=== PATIENT | female | born 2005 | race Caucasian/White ===

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

== ENCOUNTER 2023-01-21 21:40 | Emergency (ER) | payer MEDICAID, OTHER ==
[2023-01-21 21:53] LABS: BILIRUBIN,URINE NEGATIVE (NEGATIVE); CLARITY,URINE CLEAR; COLOR,URINE YELLOW; GLUCOSE, URINE (UA) NEGATIVE (NEGATIVE); KETONES,URINE NEGATIVE (NEGATIVE); LEUKOCYTE ESTERASE ,URINE NEGATIVE (NEGATIVE); NITRITE,URINE NEGATIVE (NEGATIVE); PH,URINE 6.5 (5-9); PROTEIN,URINE NEGATIVE (NEGATIVE)
[2023-01-21 21:59] LABS: AMORPHOUS SEDIMENT,UR FEW AMOR URATES /LPF; BACTERIA,URINE FEW /HPF
[2023-01-21 22:03] LABS: BASOPHILS % (AUTO) 1 % (0-10); EOSINOPHILS # (AUTO) 0.1 10^3/uL (0.0-0.3); EOSINOPHILS % (AUTO) 1 % (0-10); HEMATOCRIT 38 % (35-52); HEMOGLOBIN 12.3 g/dL (11.5-16.0); LYMPHOCYTES # (AUTO) 3.2 10^3/uL (1.0-4.0); LYMPHOCYTES % (AUTO) 42 % (12-44); MEAN CORPUSCULAR HEMOGLOBIN 28 pg (25-34); MEAN CORPUSCULAR HGB CONC 33 g/dL (32-36); MEAN CORPUSCULAR VOLUME 87 fL (80-99); MEAN PLATELET VOLUME 11.6 fL (9.0-12.2); MONOCYTES # (AUTO) 0.6 10^3/uL (0.0-1.0); MONOCYTES % (AUTO) 9 % (0-12); NEUTROPHILS # (AUTO) 3.6 10^3/uL (1.8-7.8); NEUTROPHILS % (AUTO) 48 % (42-75); PLATELET COUNT 204 10^3/uL (130-400); WHITE BLOOD COUNT 7.6 10^3/uL (4.3-11.0)
[2023-01-21 22:25] LABS: CARBON DIOXIDE 26 MMOL/L (21-32); CHLORIDE 106 MMOL/L (98-107); POTASSIUM 3.8 MMOL/L (3.6-5.0); SODIUM 139 MMOL/L (135-145)
[2023-01-21 22:26] LABS: ALANINE AMINOTRANSFERASE 12 U/L (0-55); ALBUMIN 4.2 GM/DL (3.2-4.5); ALKALINE PHOSPHATASE 81 U/L (40-136); BILIRUBIN,TOTAL 0.2 MG/DL (0.1-1.0); BUN/CREATININE RATIO 14; CALCIUM 9.4 MG/DL (8.5-10.1); GFR ESTIMATED 74; GLUCOSE 95 MG/DL (70-105); TOTAL PROTEIN 6.7 GM/DL (6.4-8.2)
--- NOTE | 2023-01-21 22:42 | ED General ---
General Chief Complaint: General Problems/Pain Stated Complaint: KIDNEY PAIN&LOWER BACK PAIN,N/V Nursing Triage Note: Pt complaining of generalized abdominal pain, n/v, breast pain, and pain with urination Source of Information: Patient, Old Records Exam Limitations: No Limitations History of Present Illness Date Seen by Provider: January 21, 2023 Time Seen by Provider: 21:43 Initial Comments This 17-year-old woman is brought to the emergency room by [facility] staff [facility] with primary complaint of nausea, vomiting, and abdominal discomfort. She reports being nauseated with occasional vomiting x3 weeks. Vomiting has not been witnessed by corrections staff. She reports her urine tonight was "black". She has urinary frequency and dysuria. She complains of lower abdominal pain and epigastric pain as well as pain in the lower back. She reports her breasts are tender. She has an Implanon control implant. She is about 4 months . She reports sometimes it is hard to breathe. Patient is the primary historian with logistics supply officer being a contributor. I also reviewed her prior ER visit here. About a month ago she had some similar complaints and reported a positive home urine test. No further work-up was done in the ER. Patient's demeanor is unusual and she has occasional outbursts of belligerent speech. At one point she shouted expletives at the sphygmomanometer as it was measuring her blood pressure. Patient provides an extensive list of behavioral health diagnoses. She reports recently being admitted to [facility]. Allergies and Home Medications Allergies Coded Allergies: Sulfa (Sulfonamide Antibiotics) (Verified Allergy, Unknown, 09/28/20) Uncoded Allergies: Flu shot (Adverse Reaction, Unknown, 01/13/21) Patient Home Medication List Home Medication List Reviewed: Yes Albuterol Sulfate (Ventolin Hfa) 1 Puff Puff, 2 PUFF INH Q4H Prescribed by: NASIMA VAUGHN MD on 07/07/22 1703 Albuterol Sulfate (Proventil Hfa) 6.7 Gm Hfa.aer.ad, 2 PUFF INH Q6H Prescribed by: SEVERO DOVER on 11/12/22 1503 Cephalexin (Cephalexin) 500 Mg Tablet, 500 MG PO BID Prescribed by: NASIMA VAUGHN MD on 07/07/22 1703 Cephalexin (Cephalexin) 500 Mg Tablet, 500 MG PO QID Prescribed by: HUMBERTO MICHAEL on 12/03/22 1150 Docosahexanoic Acid ( Dha) 200 Mg Capsule, 200 MG PO DAILY, (Reported) Entered as Reported by: MADISON MARIEE on 05/30/22 0023 Doxycycline Hyclate (Doxycycline Hyclate) 100 Mg Tablet, 100 MG PO BID Prescribed by: HUMBERTO MICHAEL on 12/03/22 115 Famotidine (Pepcid) 20 Mg Tablet, 20 MG PO BID Prescribed by: DONTAE SIDDIQUI on 01/21/23 224 Guaifenesin (Mucinex) 1,200 Mg Tab.er.12h, 1,200 MG PO BID Prescribed by: SEVERO DOVER on 11/12/22 1503 Nitrofurantoin Macrocrystal (Nitrofurantoin) 100 Mg Capsule, 100 MG PO BID Prescribed by: NASIMA VAUGHN MD on 11/28/22 1228 Nitrofurantoin Monohyd/M-Cryst (Macrobid 100 mg Capsule) 100 Mg Capsule, 1 TAB PO BID Prescribed by: SUYAPA ALVARADO on 12/01/22 2112 Ondansetron (Ondansetron Odt) 4 Mg Tab.rapdis, 4 MG SL Q6H PRN for NAUSEA/VOMITING Prescribed by: HUMBERTO MICHAEL on 12/03/22 1150 Ondansetron (Ondansetron Odt) 4 Mg Tab.rapdis, 4 MG SL Q4H PRN for NAUSEA/VOMITING Prescribed by: DONTAE SIDDIQUI on 01/21/23 224 Review of Systems Review of Systems Constitutional: no symptoms reported EENTM: no symptoms reported Respiratory: see HPI Cardiovascular: no symptoms reported Gastrointestinal: see HPI Genitourinary: see HPI : No LMP: Dec 05, 2022 Musculoskeletal: see HPI Skin: no symptoms reported Psychiatric/Neurological: See HPI Hematologic/Lymphatic: No Symptoms Reported Immunological/Allergic: no symptoms reported Past Niqrubu-Onfcqw-Pdjvvx Hx Patient Social History Tobacco Use?: Yes Tobacco type used: Cigarettes Smoking Status: Current Everyday Smoker Use of E-Cig and/or Vaping dev: Yes E-Cig or Vaping type used: Nicotine Substance use?: Yes (Marijuana, mushrooms, acid) Substance type: Hallucinogens, Marijuana Alcohol Use?: Yes Pt feels they are or have been: No Immunizations Up To Date PED Vaccines UTD: Yes First/Initial COVID19 Vaccinat: N/A Second COVID19 Vaccination Derek: N/A Third COVID19 Vaccination Date: N/A Seasonal Allergies Seasonal Allergies: No Past Medical History Surgery/Hospitalization HX: asthma Surgeries: Yes Orthopedic (ACL repair) Respiratory: Yes Asthma Cardiac: No Neurological: Yes ("Thalamus tumor") : No Last Menstrual Period: Dec 05, 2022 Reproductive Disorders: Yes ("Cyst on my uterus") Genitourinary: No Gastrointestinal: No Musculoskeletal: Yes (ACL injury left knee) Endocrine: No HEENT: No Cancer: No Psychosocial: Yes (Autism) ADD/ADHD, PTSD, Bipolar, Schizophrenia, Depression Integumentary: No Blood Disorders: No Family Medical History No Pertinent Family Hx SOCIAL HISTORY: -SMOKES 1 PPD -ALCOHOL --OCCASIONAL USE -DRUGS--DAILY MARIJUANA USE Physical Exam Vital Signs Vital Signs - First Documented 01/21/23 21:44 Pulse 82 Resp 18 B/P (MAP) 101/58 (72) Pulse Ox 100 O2 Delivery Room Air Capillary Refill : Less Than 3 Seconds Height, Weight, BMI Height: '" Weight: lbs. oz. kg; 21.00 BMI Method: General Appearance: No Apparent Distress, WD/WN HEENT: PERRL/EOMI, Normal ENT Inspection Neck: Normal Inspection Respiratory: Lungs Clear, Normal Breath Sounds, No Accessory Muscle Use, Other (Poor inspiratory effort) Cardiovascular: Regular Rate, Rhythm, No Edema, No Murmur Gastrointestinal: Normal Bowel Sounds, Soft; No Distended; Tenderness (Generalized) Back: Normal Inspection, CVA Tenderness (R) Extremity: Normal Inspection, No Pedal Edema Neurologic/Psychiatric: Alert, Oriented x3, No Motor/Sensory Deficits, Other (Behavior and appropriate at times with outbursts of belligerent expletives. Generally cooperative.) Progress/Results/Core Measures Suspected Sepsis SIRS Temperature: Pulse: 82 Respiratory Rate: 18 Laboratory Tests 01/21/23 22:00: White Blood Count 7.6 Blood Pressure 101 /58 Mean: 72 Laboratory Tests 01/21/23 22:00: Creatinine 1.10, Platelet Count 204, Total Bilirubin 0.2 Results/Orders Lab Results Laboratory Tests Test 01/21/23 21:47 01/21/23 22:00 Range/Units Urine Color YELLOW Urine Clarity CLEAR Urine pH 6.5 5-9 Urine Specific [place] 1.015 L 1.016-1.022 Urine Protein NEGATIVE NEGATIVE Urine Glucose (UA) NEGATIVE NEGATIVE Urine Ketones NEGATIVE NEGATIVE Urine Nitrite NEGATIVE NEGATIVE Urine Bilirubin NEGATIVE NEGATIVE Urine Urobilinogen 0.2 < = 1.0 MG/DL Urine Leukocyte Esterase NEGATIVE NEGATIVE Urine RBC (Auto) NEGATIVE NEGATIVE Urine RBC NONE /HPF Urine WBC 2-5 /HPF Urine Squamous Epithelial Cells 2-5 /HPF Urine Crystals PRESENT H /LPF Urine Amorphous Sediment FEW GOPI URATES H /LPF Urine Bacteria FEW H /HPF Urine Casts NONE /LPF Urine Mucus SMALL H /LPF Urine Culture Indicated NO White Blood Count 7.6 4.3-11.0 10^3/uL Red Blood Count 4.33 3.80-5.11 10^6/uL Hemoglobin 12.3 11.5-16.0 g/dL Hematocrit 38 35-52 % Mean Corpuscular Volume 87 80-99 fL Mean Corpuscular Hemoglobin 28 25-34 pg Mean Corpuscular Hemoglobin Concent 33 32-36 g/dL Red Cell Distribution Width 13.0 10.0-14.5 % Platelet Count 204 130-400 10^3/uL Mean Platelet Volume 11.6 9.0-12.2 fL Immature Granulocyte % (Auto) 0 % Neutrophils (%) (Auto) 48 42-75 % Lymphocytes (%) (Auto) 42 12-44 % Monocytes (%) (Auto) 9 0-12 % Eosinophils (%) (Auto) 1 0-10 % Basophils (%) (Auto) 1 0-10 % Neutrophils # (Auto) 3.6 1.8-7.8 10^3/uL Lymphocytes # (Auto) 3.2 1.0-4.0 10^3/uL Monocytes # (Auto) 0.6 0.0-1.0 10^3/uL Eosinophils # (Auto) 0.1 0.0-0.3 10^3/uL Basophils # (Auto) 0.0 0.0-0.1 10^3/uL Immature Granulocyte # (Auto) 0.0 0.0-0.1 10^3/uL Sodium Level 139 135-145 MMOL/L Potassium Level 3.8 3.6-5.0 MMOL/L Chloride Level 106 98-107 MMOL/L Carbon Dioxide Level 26 21-32 MMOL/L Anion Gap 7 5-14 MMOL/L Blood Urea Nitrogen 15 7-18 MG/DL Creatinine 1.10 0.60-1.30 MG/DL Estimat Glomerular Filtration Rate 74 BUN/Creatinine Ratio 14 Glucose Level 95 70-105 MG/DL Calcium Level 9.4 8.5-10.1 MG/DL Corrected Calcium 9.2 8.5-10.1 MG/DL Total Bilirubin 0.2 0.1-1.0 MG/DL Aspartate Amino Transf (AST/SGOT) 16 5-34 U/L Alanine Aminotransferase (ALT/SGPT) 12 0-55 U/L Alkaline Phosphatase 81 40-136 U/L C-Reactive Protein < 0.30 <0.50 MG/DL Total Protein 6.7 6.4-8.2 GM/DL Albumin 4.2 3.2-4.5 GM/DL Lipase 34 8-78 U/L Serum Test, Qualitative NEGATIVE NEGATIVE My Orders Orders - DONTAE SCHULZ MD Ua Culture If Indicated (01/21/23 21:43) Cbc With Automated Diff (01/21/23 21:58) Comprehensive Metabolic Panel (01/21/23 21:58) Hcg,Qualitative Serum (01/21/23 21:58) Crp Fs (01/21/23 21:58) Ed Iv/Invasive Line Start (01/21/23 21:58) Lipase (01/21/23 22:01) Ondansetron Injection (Zofran Injectio (01/21/23 22:45) Pantoprazole Tablet (Protonix Tablet) (01/21/23 22:45) Medications Given in ED Current Medications Medications Dose Ordered Sig/Raeann Route Start Time Stop Time Status Last Admin Dose Admin Ondansetron HCl 4 mg ONCE ONCE IVP 01/21/23 22:45 01/21/23 22:46 DC 01/21/23 22:46 4 MG Pantoprazole Sodium 40 mg ONCE ONCE PO 01/21/23 22:45 01/21/23 22:46 DC 01/21/23 22:47 40 MG Vital Signs/I&O 01/21/23 01/21/23 21:44 22:50 Pulse 82 82 Resp 18 18 B/P (MAP) 101/58 (72) 101/58 Pulse Ox 100 100 O2 Delivery Room Air Room Air Capillary Refill : Less Than 3 Seconds Blood Pressure Mean: 72 Progress Note : Progress Note Vital signs were unremarkable. Patient stated tenderness on abdominal exam and right CVA tenderness. Exam was otherwise unremarkable. She was noted any physical distress. No vomiting was appreciated in the ER. Labs were evaluated and interpreted by me. CBC, CMP, lipase, urinalysis, and serum test are all unremarkable. Patient was treated with Zofran and Protonix and ultimately discharged with corrections staff. Further evaluation may be pursued on a nonemergent basis with the corrections medical staff. If symptoms persist, an outpatient ultrasound could be obtained. Prescriptions for Pepcid and Zofran were provided. Departure Impression Primary Impression: Abdominal pain Qualified Codes: R10.84 - Generalized abdominal pain Additional Impressions: Dysuria Nausea & vomiting Qualified Codes: R11.2 - Nausea with vomiting, unspecified Disposition: 01 HOME, SELF-CARE Condition: Stable Departure-Patient Inst. Decision time for Depature: 22:47 Referrals: [facility] (PCP/Family) Primary Care Physician Patient Instructions: Abdominal Pain, Adult ED Add. Discharge Instructions: Use Pepcid twice daily for upset stomach. Use Zofran (ondansetron) as prescri bed for nausea and vomiting. Follow-up with the [facility] medical provider to determine if additional work-up is warranted. Return to the ER if symptoms are worsening despite following these instructions. All discharge instructions reviewed with patient and/or family. Voiced understanding. Scripts Famotidine (Pepcid) 20 Mg Tablet 20 MG PO BID, #30 TAB Prov: DONTAE SCHULZ MD 01/21/23 Ondansetron (Ondansetron Odt) 4 Mg Tab.rapdis 4 MG SL Q4H PRN for NAUSEA/VOMITING, #10 TAB Prov: DONTAE SCHULZ MD 01/21/23 Copy Copies To 1: [facility]/DONTAE SKELTON MD January 21, 2023 22:42
[2023-01-21] MEDS ORDERED: PANTOPRAZOLE 40 MG (PROTONIX) TAB PO ONE (22:45)
[2023-01-21] MEDS ORDERED: ONDANSETRON 4 MG/2 ML (SDV) Z0FRAN IVP ONE (22:45)
[2023-01-21] MEDS ORDERED: ONDA4TAB11 SL (22:49)
[2023-01-21] MEDS ORDERED: FAMO-119 PO (22:49)
[2023-01-21 22:50] VITALS: BP 101/58
== END 2023-01-21 22:52 | disposition home or self-care (01) ==
LOC: EDUNIT# 21:40 → ER FS 21:42
DX: R10.84 Generalized abdominal pain (principal); R30.0 Dysuria; R11.2 Nausea with vomiting, unspecified; R35.0 Frequency of micturition; F17.210 Nicotine dependence, cigarettes, uncomplicated; F17.290 Nicotine dependence, other tobacco product, uncomplicated; Z28.310 Unvaccinated for COVID-19
CPT/HCPCS: 36415; 80053; 81000; 83690; 84703; 85025; 86141

== ENCOUNTER 2023-08-13 20:45 | Emergency (ER) | payer MEDICAID, OTHER ==
[~2023-08-13] VITALS: Ht 162 cm; Wt 62.6 kg
[2023-08-13 20:45] VITALS: BP 98/66
[~2023-08-13 20:45] MED LIST changes: +FAMO-119 PO
[2023-08-13] MEDS ORDERED: PANTOPRAZOLE INJECTION 40 MG VIAL IV STA (20:56)
[2023-08-13] MEDS ORDERED: ONDANSETRON INJECTION 4 MG/2 ML (SDV) IVP STA (20:56)
[2023-08-13] MEDS ORDERED: KETOROLAC INJ 15 MG/ML VIAL IVP STA (20:56)
[2023-08-13] MEDS ORDERED: NS IV 1000 ML 1,000 ML IV STA ×2 (20:56→21:36)
--- NOTE | 2023-08-13 21:03 | ED General ---
General Chief Complaint: General Problems/Pain Stated Complaint: WITHDRAWAL SYMPTOMS Source of Information: Patient, Family (sister over patient's cell phone as an independent historian as patient called her to answer questions about why she was in the ED rather than answer herself) History of Present Illness Date Seen by Provider: Aug 13, 2023 Time Seen by Provider: 20:47 Initial Comments 18-year-old female presenting with complaints of not feeling well for the last several days. She is currently on probation and had tested positive for marijuana and fentanyl earlier this week. She had a negative urine drug test on the sixth but has continued to not feel well. She stated that she almost passed out this morning and she has been having nausea with vomiting. She has been drinking a lot of energy drinks but not much in the way of water or any hydrating drinks. She denies any pain or burning with urination. She has had episodes of sweating but denies any actual fever or chills. She was seen in the clinic earlier this week and reportedly had swabs done to test for strep and viral infections. These were reportedly negative. Since she continued to not feel well rather than go back to the clinic during the week she came here to the emergency department on Wednesday night at 9 PM. Severity: Moderate Associated Systoms: No Chest Pain, No Cough, No Diaphoresis, No Fever/Chills, No Headaches, No Loss of Appetite; Malaise, Nausea/Vomiting; No Rash, No Seizure; Shortness of Air; No Syncope; Weakness Allergies and Home Medications Allergies Coded Allergies: Sulfa (Sulfonamide Antibiotics) (Verified Allergy, Unknown, 09/28/20) olanzapine (Verified Allergy, Unknown, 01/22/23) Uncoded Allergies: Flu shot (Adverse Reaction, Unknown, 01/13/21) Patient Home Medication List Home Medication List Reviewed: Yes Albuterol Sulfate (Ventolin Hfa) 1 Puff Puff, 2 PUFF INH Q4H Prescribed by: NASIMA VAUGHN MD on 07/07/22 170 Albuterol Sulfate (Proventil Hfa) 6.7 Gm Hfa.aer.ad, 2 PUFF INH Q6H Prescribed by: SEVERO DOVER on 11/12/22 1503 Cephalexin (Cephalexin) 500 Mg Tablet, 500 MG PO BID Prescribed by: NASIMA VAUGHN MD on 07/07/22 1703 Cephalexin (Cephalexin) 500 Mg Tablet, 500 MG PO QID Prescribed by: HUMBERTO MICHAEL on 12/03/22 1150 Docosahexanoic Acid ( Dha) 200 Mg Capsule, 200 MG PO DAILY, (Reported) Entered as Reported by: MADISON MARIEE on 05/30/22 0023 Doxycycline Hyclate (Doxycycline Hyclate) 100 Mg Tablet, 100 MG PO BID Prescribed by: HUMBERTO MICHAEL on 12/03/22 1150 Famotidine (Pepcid) 20 Mg Tablet, 20 MG PO BID Prescribed by: DONTAE SIDDIQUI on 01/21/232248 Guaifenesin (Mucinex) 1,200 Mg Tab.er.12h, 1,200 MG PO BID Prescribed by: SEVERO DOVER on 11/12/22 1503 Nitrofurantoin Macrocrystal (Nitrofurantoin) 100 Mg Capsule, 100 MG PO BID Prescribed by: NASIMA VAUGHN MD on 11/28/22 1228 Nitrofurantoin Monohyd/M-Cryst (Macrobid 100 mg Capsule) 100 Mg Capsule, 1 TAB PO BID Prescribed by: SUYAPA ALVARADO on 12/01/22 2112 Nitrofurantoin Monohyd/M-Cryst (Nitrofurantoin [place]-Mcr 100 mg) 100 Mg Capsule, 100 MG PO BID Prescribed by: LUC ISAACS on 08/13/232134 Ondansetron (Ondansetron Odt) 4 Mg Tab.rapdis, 4 MG SL Q6H PRN for NAUSEA/VOMITING Prescribed by: HUMBERTO MICHAEL on 12/03/22 1150 Ondansetron (Ondansetron Odt) 4 Mg Tab.rapdis, 4 MG SL Q4H PRN for NAUSEA/VOMITING Prescribed by: DONTAE SIDDIQUI on 01/21/232248 Ondansetron (Ondansetron Odt) 4 Mg Tab.rapdis, 4 MG PO Q6H PRN for NAUS EA/VOMITING Prescribed by: LUC ISAACS on 08/13/232134 Review of Systems Review of Systems Constitutional: No chills, No diaphoresis, No dizziness, No fever; malaise, weakness EENTM: no symptoms reported Respiratory: see HPI; No cough; short of breath (Complains of feeling short of breath but is in no respiratory distress) Cardiovascular: no symptoms reported Gastrointestinal: No abdominal pain, No diarrhea; nausea, vomiting Genitourinary: No dysuria, No frequency, No hematuria Musculoskeletal: no symptoms reported Skin: No rash Psychiatric/Neurological: See HPI Past Gobbvia-Kjxxtk-Lbopih Hx Patient Social History Tobacco Use?: Yes Substance use?: Yes Substance type: Marijuana Immunizations Up To Date PED Vaccines UTD: Yes First/Initial COVID19 Vaccinat: N/A Second COVID19 Vaccination Derek: N/A Third COVID19 Vaccination Date: N/A Seasonal Allergies Seasonal Allergies: No Past Medical History Surgery/Hospitalization HX: asthma Surgeries: Yes Orthopedic Respiratory: Yes Asthma Cardiac: No Neurological: Yes ("Thalamus tumor") Reproductive Disorders: Yes ("Cyst on my uterus") Genitourinary: No Gastrointestinal: No Musculoskeletal: Yes (ACL injury left knee) Endocrine: No HEENT: No Cancer: No Psychosocial: Yes (Autism) ADD/ADHD, PTSD, Bipolar, Schizophrenia, Depression Integumentary: No Blood Disorders: No Family Medical History No Pertinent Family Hx SOCIAL HISTORY: -SMOKES 1 PPD -ALCOHOL --OCCASIONAL USE -DRUGS--DAILY MARIJUANA USE Physical Exam Vital Signs Vital Signs - First Documented Capillary Refill : Height, Weight, BMI Height: '" Weight: lbs. oz. kg; 21.00 BMI Method: General Appearance: No Apparent Distress, WD/WN HEENT: PERRL/EOMI, Pharynx Normal, Moist Mucous Membranes Neck: Full Range of Motion, Normal Inspection, Non Tender, Supple Respiratory: Chest Non Tender, Lungs Clear, Normal Breath Sounds, No Accessory Muscle Use, No Respiratory Distress Cardiovascular: Regular Rate, Rhythm, Normal Peripheral Pulses Gastrointestinal: Normal Bowel Sounds, No Pulsatile Mass, Non Tender, Soft Rectal: Deferred Extremity: Normal Capillary Refill, Normal Inspection, No Calf Tenderness, No Pedal Edema Neurologic/Psychiatric: Alert, Oriented x3, tape coater II-XII Norm as Tested Skin: Normal Color, Warm/Dry Progress/Results/Core Measures Suspected Sepsis SIRS Temperature: Pulse: Respiratory Rate: Laboratory Tests 08/13/23 21:00: White Blood Count 8.1 Blood Pressure / Mean: Laboratory Tests 08/13/23 21:00: Creatinine 0.83, Platelet Count 250, Total Bilirubin < 0.2 Results/Orders Lab Results Laboratory Tests Test 08/13/23 21:00 Range/Units White Blood Count 8.1 4.3-11.0 10^3/uL Red Blood Count 4.52 3.80-5.11 10^6/uL Hemoglobin 13.4 11.5-16.0 g/dL Hematocrit 40 35-52 % Mean Corpuscular Volume 89 80-99 fL Mean Corpuscular Hemoglobin 30 25-34 pg Mean Corpuscular Hemoglobin Concent 33 32-36 g/dL Red Cell Distribution Width 12.0 10.0-14.5 % Platelet Count 250 130-400 10^3/uL Mean Platelet Volume 10.9 9.0-12.2 fL Immature Granulocyte % (Auto) 0 % Neutrophils (%) (Auto) 48 42-75 % Lymphocytes (%) (Auto) 40 12-44 % Monocytes (%) (Auto) 9 0-12 % Eosinophils (%) (Auto) 2 0-10 % Basophils (%) (Auto) 1 0-10 % Neutrophils # (Auto) 3.9 1.8-7.8 10^3/uL Lymphocytes # (Auto) 3.2 1.0-4.0 10^3/uL Monocytes # (Auto) 0.7 0.0-1.0 10^3/uL Eosinophils # (Auto) 0.2 0.0-0.3 10^3/uL Basophils # (Auto) 0.0 0.0-0.1 10^3/uL Immature Granulocyte # (Auto) 0.0 0.0-0.1 10^3/uL Urine Color YELLOW Urine Clarity CLOUDY Urine pH 7.0 5-9 Urine Specific [place] 1.020 1.016-1.022 Urine Protein NEGATIVE NEGATIVE Urine Glucose (UA) NEGATIVE NEGATIVE Urine Ketones NEGATIVE NEGATIVE Urine Nitrite NEGATIVE NEGATIVE Urine Bilirubin NEGATIVE NEGATIVE Urine Urobilinogen 0.2 < = 1.0 MG/DL Urine Leukocyte Esterase TRACE H NEGATIVE Urine RBC (Auto) NEGATIVE NEGATIVE Urine RBC 5-10 H /HPF Urine WBC 25-50 H /HPF Urine Squamous Epithelial Cells 10-25 H /HPF Urine Crystals NONE /LPF Urine Bacteria MODERATE H /HPF Urine Casts PRESENT /LPF Urine Granular Casts 0-2 H /LPF Urine Mucus NEGATIVE /LPF Urine Culture Indicated YES Sodium Level 139 135-145 MMOL/L Potassium Level 4.0 3.6-5.0 MMOL/L Chloride Level 104 98-107 MMOL/L Carbon Dioxide Level 27 21-32 MMOL/L Anion Gap 8 5-14 MMOL/L Blood Urea Nitrogen 11 7-18 MG/DL Creatinine 0.83 0.60-1.30 MG/DL Estimat Glomerular Filtration Rate 103 BUN/Creatinine Ratio 13 Glucose Level 82 70-105 MG/DL Calcium Level 9.9 8.5-10.1 MG/DL Corrected Calcium 8.5-10.1 MG/DL Total Bilirubin < 0.2 0.1-1.0 MG/DL Aspartate Amino Transf (AST/SGOT) 19 5-34 U/L Alanine Aminotransferase (ALT/SGPT) 12 0-55 U/L Alkaline Phosphatase 97 40-136 U/L Total Protein 7.8 6.4-8.2 GM/DL Albumin 4.7 H 3.2-4.5 GM/DL Lipase 43 8-78 U/L Urine Opiates Screen NEGATIVE NEGATIVE Urine Oxycodone Screen NEGATIVE NEGATIVE Urine Methadone Screen NEGATIVE NEGATIVE Urine Barbiturates Screen NEGATIVE NEGATIVE Ur Tricyclic Antidepressants Screen NEGATIVE NEGATIVE Urine Phencyclidine Screen NEGATIVE NEGATIVE Urine Amphetamines Screen NEGATIVE NEGATIVE Urine Methamphetamines Screen NEGATIVE NEGATIVE Urine Benzodiazepines Screen NEGATIVE NEGATIVE Urine Cocaine Screen NEGATIVE NEGATIVE Urine Cannabinoids Screen NEGATIVE NEGATIVE Serum Alcohol < 10 <10 MG/DL My Orders Orders - LUC ISAACS MD Comprehensive Metabolic Panel (08/13/23 20:56) Lipase (08/13/23 20:56) Ua Culture If Indicated (08/13/23 20:56) Ed Iv/Invasive Line Start (08/13/23 20:56) Cbc And Automated Diff (08/13/23 20:56) Drug Screen Stat (Urine) (08/13/23 20:56) Alcohol (08/13/23 20:56) Urine Bedside (08/13/23 20:56) Ns Iv 1000 Ml (Ns Iv 1000 Ml) (08/13/23 20:56) Ondansetron Injection (Ondansetron Inj (08/13/23 20:56) Ketorolac Injection (Ketorolac Injection (08/13/23 20:56) Pantoprazole Injection (Pantoprazole Inj (08/13/23 20:56) Urine Culture (08/13/23 21:00) Ceftriaxone Iv/Im (Ceftriaxone Iv/Im) (08/13/23 21:36) Ns Iv 1000 Ml (Ns Iv 1000 Ml) (08/13/23 21:36) Vital Signs/I&O 08/13/23 08/13/23 20:45 20:45 Temp 36.2 Pulse 92 Resp 16 B/P (MAP) 98/66 (77) Pulse Ox 100 O2 Delivery Room Air Room Air Capillary Refill : Progress Note #1: Progress Note Differential diagnosis includes substance abuse, electrolyte imbalance, dehydration, UTI, alcohol abuse, viral infection. Establish peripheral IV access and send labs for complete blood count, comprehensive metabolic profile, lipase, urinalysis, alcohol level, urine drug screen. Obtain a urine bedside test. Administer normal saline 1 L IV fluid bolus for hydration, Zofran 4 mg IV for nausea and vomiting, Toradol 15 mg IV for pain, pantoprazole 40 mg IV for possible gastritis. Progress Note #2: Time: 21:32 Progress Note Complete blood count did not show elevated white blood cell count as it was normal at 8.1. Hemoglobin was low normal at 13.4. Urinalysis showed signs of a urinary tract infection with trace leukocyte esterase, 25-50 white blood cells and moderate bacteria. She had a specific gravity of 1.020 so she might have some mild dehydration. Her urine drug screen was negative for all substances tested. Will add on Rocephin 1 g IV for findings of UTI and given additional liter of normal saline for hydration. Plan to discharge on oral antibiotics and nausea medicine with follow-up and return precautions. Have her follow-up with the clinic for continued concerns. 2143 the comprehensive metabolic profile did not show any acute significant electrolyte abnormalities. Lipase was negative for pancreatitis. She is not showing signs of severe dehydration as her BUN and creatinine were both normal. Her alcohol level was less than 10. Will proceed with plan as above treating for UTI and providing nausea medicine in the hopes of keeping her stomach settled so she could drink more fluids. Counseled to avoid energy drinks and try and drink electrolyte drinks or water. Follow-up through the clinic if not improving or having continued concerns. Departure Impression Primary Impression: Acute cystitis with hematuria Additional Impressions: Nausea and vomiting in adult Malaise and fatigue Disposition: 01 HOME, SELF-CARE Condition: Stable Departure-Patient Inst. Decision time for Depature: 21:46 Referrals: [facility] (PCP/Family) Primary Care Physician Patient Instructions: Fatigue ED, Nausea and Vomiting, Adult ED, Urinary Tract Infection, Adult ED Add. Discharge Instructions: Try to drink more water and electrolyte drinks. Avoid energy drinks as they can cause you to be dehydrated. Avoid using drugs or alcohol. Use the nausea medicine to help keep your stomach settled. Follow up with clinic for continued concerns. All discharge instructions reviewed with patient and/or family. Voiced understanding. Scripts Ondansetron (Ondansetron Odt) 4 Mg Tab.rapdis 4 MG PO Q6H PRN for NAUSEA/VOMITING for 3 Days, #12 TAB 0 Refills Prov: LUC ISAACS MD 08/13/23 Nitrofurantoin Monohyd/M-Cryst (Nitrofurantoin [place]-Mcr 100 mg) 100 Mg Capsule 100 MG PO BID for UTI for 5 Days, #10 CAP 0 Refills Prov: LUC ISAACS MD 08/13/23 LCU ISAACS MD Aug 13, 2023 21:03
[2023-08-13 21:14] LABS: BASOPHILS % (AUTO) 1 % (0-10); EOSINOPHILS # (AUTO) 0.2 10^3/uL (0.0-0.3); EOSINOPHILS % (AUTO) 2 % (0-10); HEMATOCRIT 40 % (35-52); HEMOGLOBIN 13.4 g/dL (11.5-16.0); LYMPHOCYTES # (AUTO) 3.2 10^3/uL (1.0-4.0); LYMPHOCYTES % (AUTO) 40 % (12-44); MEAN CORPUSCULAR HEMOGLOBIN 30 pg (25-34); MEAN CORPUSCULAR HGB CONC 33 g/dL (32-36); MEAN CORPUSCULAR VOLUME 89 fL (80-99); MEAN PLATELET VOLUME 10.9 fL (9.0-12.2); MONOCYTES # (AUTO) 0.7 10^3/uL (0.0-1.0); MONOCYTES % (AUTO) 9 % (0-12); NEUTROPHILS # (AUTO) 3.9 10^3/uL (1.8-7.8); NEUTROPHILS % (AUTO) 48 % (42-75); PLATELET COUNT 250 10^3/uL (130-400); WHITE BLOOD COUNT 8.1 10^3/uL (4.3-11.0)
[2023-08-13 21:15] LABS: BILIRUBIN,URINE NEGATIVE (NEGATIVE); COLOR,URINE YELLOW; GLUCOSE, URINE (UA) NEGATIVE (NEGATIVE); KETONES,URINE NEGATIVE (NEGATIVE); LEUKOCYTE ESTERASE ,URINE TRACE (NEGATIVE); NITRITE,URINE NEGATIVE (NEGATIVE); PROTEIN,URINE NEGATIVE (NEGATIVE)
[2023-08-13 21:16] LABS: CLARITY,URINE CLOUDY
[2023-08-13 21:21] LABS: BACTERIA,URINE MODERATE /HPF; GRANULAR CASTS,URINE 0-2 /LPF; WBC,URINE 25-50 /HPF
[2023-08-13 21:26] LABS: AMPHETAMINE SCREEN, URINE NEGATIVE (NEGATIVE); BARBITURATE SCREEN URINE NEGATIVE (NEGATIVE); CANNABINOID SCREEN, URINE NEGATIVE (NEGATIVE); COCAINE SCREEN URINE NEGATIVE (NEGATIVE); METHADONE STAT NEGATIVE (NEGATIVE); OPIATE SCREEN URINE NEGATIVE (NEGATIVE); OXYCODONE STAT NEGATIVE (NEGATIVE); TRICYCLIC ANTIDEPRESSANTS SCRE NEGATIVE (NEGATIVE)
[2023-08-13 21:34] LABS: CARBON DIOXIDE 27 MMOL/L (21-32); CHLORIDE 104 MMOL/L (98-107); SODIUM 139 MMOL/L (135-145)
[2023-08-13 21:35] LABS: BILIRUBIN,TOTAL < 0.2 MG/DL (0.1-1.0); CALCIUM 9.9 MG/DL (8.5-10.1); GLUCOSE 82 MG/DL (70-105); LIPASE 43 U/L (8-78); TOTAL PROTEIN 7.8 GM/DL (6.4-8.2)
[2023-08-13] MEDS ORDERED: NITR100C10 PO (21:35)
[2023-08-13] MEDS ORDERED: ONDA4TAB11 PO (21:35)
[2023-08-13 21:36] LABS: ALANINE AMINOTRANSFERASE 12 U/L (0-55); ALBUMIN 4.7 GM/DL (3.2-4.5); ALKALINE PHOSPHATASE 97 U/L (40-136); BUN/CREATININE RATIO 13; CREATININE SERUM 0.83 MG/DL (0.60-1.30); GFR ESTIMATED 103
[2023-08-13] MEDS ORDERED: cefTRIAXone IV/IM 1,000 MG in NS (IVPB) 50 ML 50 ML IV STA (21:36)
== END 2023-08-13 22:17 | disposition home or self-care (01) ==
LOC: EDUNIT# 20:45 → ER FS 20:46
DX: N30.01 Acute cystitis with hematuria (principal); R11.2 Nausea with vomiting, unspecified; R53.83 Other fatigue; R53.81 Other malaise; F17.210 Nicotine dependence, cigarettes, uncomplicated; Z88.2 Allergy status to sulfonamides
CPT/HCPCS: 36415; 80053; 80306; 80320; 81000; 83690; 84703; 85025; 87088